=== PATIENT | male | born 1985 | race Caucasian/White ===

== ENCOUNTER 2017-07-27 20:20 | Emergency (ER) | payer SELFPAY ==
[2017-07-27 20:21] VITALS: BP 121/71; PULSE 80; RESP 16; TEMP 37.2; O2SAT 98; BMI 27.5
--- NOTE | 2017-07-27 21:25 | CT_ITS ---
STUDY: CT BRAIN WITHOUT CONTRAST REASON FOR EXAM: Male, 32 years old. Seizure were RADIATION DOSAGE (If Supplied By Facility): CTDIvol = ( 44.99 ) mGy, DLP = ( 796.11 ) mGycm TECHNIQUE: Transaxial CT imaging of the brain was performed without administration of intravenous contrast material. Individualized dose optimization techniques were used for this CT. COMPARISON: None. FINDINGS: There is no acute bleed or infarct. There are normal white matter tracts. The ventricles are normal in configuration. There is no hydrocephalus. The visualized paranasal sinuses are clear. The mastoid air cells are well aerated. There is no skull fracture. CT/Brain/Head without Contrast IMPRESSION: No acute intracranial abnormality. Electronically Signed: Raphael Carlton, at 21:44 EST Tel , Service support ,
--- NOTE | 2017-07-27 22:34 | ED.VISSUMM ---
- ER Visit Summary Date of Service: 07/27/17 Chief Complaint: Seizure History of Present Illness: The patient is a 32 M presenting after what he feels was a seizure. He states he had a witnessed seizure in April which was his first seizure. He states today he felt similar to when he had a seizure in April. He woke up on the floor unsure what happened or how he got there. He initially had a headache and nausea but this has since resolved. He denies fever or other complaints. He denies injury. He denies tongue biting or urinary incontinence. Physical Examination: Vitals are stable. Patient is afebrile. Alert no acute distress. HEENT exam is unremarkable. Neck is supple. No meningismus Lungs are clear and equal bilaterally. Heart is regular rate and rhythm. Abdomen is soft nontender nondistended. Extremities are unremarkable. Skin is warm and dry. No focal neurologic deficit. Remainder of exam is unremarkable. Emergency Department Course and Treatment: CT head shows no acute process. Patient feels back to baseline in the emergency department. He is advised that because this was his second episode that he should start seizure medication. He states he does not want to be on medication and will take a natural remedy and follow-up with his primary care physician. Discussed with Dr. Flor and patient will follow-up with Dr. Flor if he changes his mind and is agreeable to medications. He is advised to not drive. Advised return to ED if worsening complaints. Disposition: Discharge home Impression: Possible seizure This note was generated with [employer] dictation software. It may contain incorrect words, spelling, and punctuation that were not noted in review of the chart prior to signing ED Disposition - Plan for ED Patient: Chief Complaint: Seizure Referrals: Jonny Guerra MD [Primary Care Provider] -
--- NOTE | 2017-07-27 22:38 | ED.DEP ---
ED Disposition - Plan for ED Patient: Chief Complaint: Seizure Instructions: ED Seizure New Onset Unk Cause Referrals: Jonny Guerra MD [Primary Care Provider] - Dylan Flor MD [STAFF PHYSICIAN] -
[2017-07-27 22:48] VITALS: BP 108/60; PULSE 84; RESP 20; O2SAT 96
== END 2017-07-27 22:49 | disposition home or self-care (01) ==
LOC: ED 21:53
PROVIDERS: Emergency Provider Emergency Medicine; Family Provider Family Medicine; PCP Family Medicine
DX: R56.9 Unspecified convulsions (principal)
CPT/HCPCS: 70450; 99282

== ENCOUNTER → 2017-09-06 19:49 | Outpatient (CLI) | payer SELFPAY | PROVIDERS: Family Provider Family Medicine; PCP Family Medicine; Visit Provider Internal Medicine | DX: R53.83 Other fatigue (principal); R56.9 Unspecified convulsions | CPT/HCPCS: 95810 ==

== ENCOUNTER → 2017-10-04 20:24 | Outpatient (CLI) | payer SELFPAY | PROVIDERS: Family Provider Family Medicine; PCP Family Medicine; Visit Provider Nurse Practitioner Acute Care | DX: G47.33 Obstructive sleep apnea (adult) (pediatric) (principal) | CPT/HCPCS: 95811 ==

== ENCOUNTER 2018-03-23 13:57 | Emergency (ER) | payer OTHER, SELFPAY ==
[2018-03-23 13:58] VITALS: BP 111/76; PULSE 82; RESP 21; TEMP 36.8; O2SAT 96; BMI 26.6
[2018-03-23 14:01] VITALS: BP 109/74; PULSE 85; RESP 23; O2SAT 96
--- NOTE | 2018-03-23 14:19 | ED.VISSUMM ---
- ER Visit Summary Date of Service: 03/23/18 Chief Complaint: Seizure History of Present Illness: The patient is a 32 M brought by EMS for breakthrough seizure witnessed by significant other while taking a nap at 1230. Reports having on and off seizures since April, this would be his fourth episode last time was in August. He seen in the ED back in July from records. Patient admits to increasing stress, did not sleep till 1230 last night. No upper respiratory symptoms. No recent vomiting or diarrhea. No urinary symptoms. No other reports hearing a scream while he is sleeping, noted had contractures upper extremity lasting a minute then tonic-clonic activities lasting less than 30 seconds. No tongue biting or incontinence of urine. He was postictal, EMS was contacted. He is back to baseline. Blood glucose was 96. Currently not on any medications did follow-up with his PCP from his last seizure had sleep studies now wears a sleep mask. He still would not like medications. He has not been referred to neurology. Records noted from his visit in July had workup with CT head that was negative. Neurology was discussed at that time, reports to follow-up as an outpatient. Physical Examination: General: Alert and oriented ?3, no acute distress HEENT: Normocephalic, atraumatic. Moist mucosa membranes. No tongue abrasion. Neck: supple, nontender. Cardiovascular: Regular rate and rhythm, no murmurs Respiratory: Normal breath sounds, symmetric, no distress Abdomen: Soft, nontender, nondistended Extremities: Nontender, no edema, pulses intact ?4 Neuro: no focal neurological deficits. Cranial nerves II through XII intact. Test Results: [] Emergency Department Course and Treatment: Patient back to baseline. To be his fourth episode with seizure activity. Glucose was normal. Discussed with patient significant other they would like to start medications were discussed with neurology, however they would like homeopathic treatment and follow-up with her PCP with discussion and referral as needed. I discussed with them signs and symptoms to return. otherwise call PCP on Sunday. Treatment Plan: [] Disposition: Discharge Impression: Breakthrough seizure This note was generated with [employer] software. It may contain incorrect words, spelling, and punctuation that were not noted in review of the chart prior to signing ED Disposition - Plan for ED Patient: Disposition: Home or Assisted Living Chief Complaint: Seizure Diagnosis: Breakthrough seizure Instructions: ED Seizure Recurrent Referrals: Candelario Waldron MD [Primary Care Provider] - 2 Days Additional Instructions: No driving, bathing alone, climbing heights until cleared by your doctor.
[2018-03-23 14:42] VITALS: BP 109/83; PULSE 75; RESP 14; O2SAT 95
== END 2018-03-23 14:45 | disposition home or self-care (01) ==
LOC: ED 14:43
PROVIDERS: Emergency Provider Emergency Medicine; Family Provider Internal Medicine; PCP Internal Medicine
DX: G40.909 Epilepsy, unspecified, not intractable, without status epilepticus (principal)
CPT/HCPCS: 99284

== ENCOUNTER → 2018-08-02 07:45 | Outpatient (CLI) | payer OTHER, SELFPAY ==
--- NOTE | 2018-08-02 11:56 | EEG ---
- Electroencephalogram Date of service 08/02/18 This is an 18 channel electroencephalogram performed utilizing the International 10-20 electrode placement protocol on this 33-year-old male with a history of seizures usually while asleep. This is a sleep deprived electroencephalogram. EKG reference leads, photic stimulation and hyperventilation were also performed. Background activity is 10 Hz symmetrically in the posterior leads which attenuates with eye-opening. Hyperventilation is performed for 5 minutes with good effort with no lateralizing or epileptiform changes and the post hyperventilatory phase was unremarkable. EKG was unremarkable and photic stimulation generated a normal symmetric driving response in the posterior leads. The patient did drowse during the recording. At the 2210 timestamp, there was a bifrontal sharp wave noted with a higher amplitude on the right side. The truck engine technician's did not notice any movement. There are no electrographic seizures noted. Impression: There is a sharp wave bifrontally right greater than left occurring this recording without electrographic correlate. This is suspicious for an epileptiform discharge.
--- NOTE | 2018-08-02 11:59 | EEG_ITS ---
- Electroencephalogram Date of service 08/02/18 This is an 18 channel electroencephalogram performed utilizing the International 10-20 electrode placement protocol on this 33-year-old male with a history of seizures usually while asleep. This is a sleep deprived electroencephalogram. EKG reference leads, photic stimulation and hyperventilation were also per formed. Background activity is 10 Hz symmetrically in the posterior leads which attenuates with eye-opening. Hyperventilation is performed for 5 minutes with good effort with no lateralizing or epileptiform changes and the post hyperventilatory phase was unremarkable. EKG was unremarkable and photic stimulation generated a normal symmetric driving response in the posterior leads. The patient did drowse during the recording. At the 2210 timestamp, there was a bifrontal sharp wave noted with a higher amplitude on the right side. The hospital laboratory technician's did not notice any movement. There are no e lectrographic seizures noted. Impression: There is a sharp wave bifrontally right greater than left occurring this recording without electrographic correlate. This is suspicious for an epileptiform discharge.
== END ==
PROVIDERS: Family Provider Internal Medicine; PCP Internal Medicine; Referring Provider Psychiatry & Neurology Neurology; Visit Provider Psychiatry & Neurology Neurology
DX: G40.909 Epilepsy, unspecified, not intractable, without status epilepticus (principal)
CPT/HCPCS: 95819